=== PATIENT | male | born 1955 | race Hispanic/Latino ===

== ENCOUNTER → 2017-10-02 | Outpatient (CLI) | payer BC | END | disposition home or self-care (01) | LOC: RAH 14:43 | PROVIDERS: ATTEND Internal Medicine | DX: R06.09 Other forms of dyspnea (principal); R03.0 Elevated blood-pressure reading, without diagnosis of hypertension | CPT/HCPCS: 71046 ==

== ENCOUNTER → 2019-02-05 | Outpatient (CLI) | payer BC | END | disposition home or self-care (01) | LOC: LAB 16:00 | PROVIDERS: ATTEND Internal Medicine | DX: K13.70 Unspecified lesions of oral mucosa (principal) | CPT/HCPCS: 87071 ==

== ENCOUNTER → 2019-03-15 | Outpatient (CLI) | payer BC | END | disposition home or self-care (01) | LOC: RAH 12:49 | PROVIDERS: ATTEND Internal Medicine | DX: R06.00 Dyspnea, unspecified (principal) | CPT/HCPCS: 71046 ==

== ENCOUNTER → 2019-03-22 | Outpatient (CLI) | payer BC | END | disposition home or self-care (01) | LOC: CANPRECLI → RAH 08:40 | PROVIDERS: ATTEND Internal Medicine | DX: I11.9 Hypertensive heart disease without heart failure (principal) | CPT/HCPCS: 93306 ==